=== PATIENT | female | born 2000 | race Two or more races ===

== ENCOUNTER 2025-04-09 18:01 | Inpatient (IN) | payer MEDICAID, SELFPAY ==
--- NOTE | 2025-04-05 13:11 | ESHP_ITS ---
RE: KALPESH JEFFRIES : 2000 DATE OF ADMISSION: 04/09/2025 HISTORY OF PRESENT ILLNESS: This is a 24-year-old 1, para 0 with EDC of 04/21 with intrauterine at 38 weeks and 2 days on April 09 who presents for induction of labor for intrauterine growth restriction. Maternal medicine did an ultrasound on April 01 which showed overall growth at the third percentile and abdominal circumference at the fifth percentile. Her umbilical artery Doppler and biophysical profile were normal. She underwent a echocardiogram on March 09 which was normal. She was referred for echocardiogram because maternal medicine ultrasound suggested that there could be a ventricular septal defect, however, this was not confirmed with the echocardiogram. Patient's care has been otherwise unremarkable with a normal 1 hour glucose tolerance test, a normal cell free DNA test and AFP and anatomy has been normal on maternal medicine ultrasounds. ALLERGIES: NO KNOWN DRUG ALLERGIES. MEDICATIONS: multivitamin 1 p.o. daily. SOCIAL HISTORY: She denies any alcohol, drug use or smoking. 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 PAST MEDICAL HISTORY: Denies. PAST SURGICAL HISTORY: Denies. FAMILY HISTORY: Denies. REVIEW OF SYSTEMS: She denies any chest pain, palpitations, cough, fever, shortness of breath, flank pain or lower extremity pain. She denies any headache, change in vision, or right upper quadrant pain. PHYSICAL EXAMINATION: VITAL SIGNS: Blood pressure 116/68, heart rate 88, respiration 18, temperature 98.6. Weight is 135 pounds. HEENT: Oropharynx and sclerae clear. LUNGS: Clear to auscultation bilaterally. HEART: Regular rate and rhythm. ABDOMEN: Gravid, consistent with estimated weight 2500 g. PELVIC: See RN notes. EXTREMITIES: Nontender. SKIN: No gross rashes or lesions. NEUROLOGIC: No focal deficit. ASSESSMENT AND PLAN: Intrauterine at 38 weeks and 2 days on April 09, intrauterine growth restriction, induction of labor, anticipate spontaneous vaginal delivery. Informed consent was obtained. The patient made aware of the risks, complication, alternative, benefits of operative vaginal delivery and delivery and agrees with these modes of delivery if indicated. DT: 12:53:15 TT: 13:10:00 Ref: [id number] - TID: [id number] MTDD
[2025-04-09 19:00] VITALS: BMI 28.0
[2025-04-09 19:18] VITALS: BP 133/87; PULSE 90
--- NOTE | 2025-04-09 20:02 | XR_ITS ---
EXAMINATION: after first trimester Date and time: April 09, 2025, 2053 hours INDICATIONS: Unknown size and presentation. TECHNIQUE AND FINDINGS: Cuevas scale sonographic images of the pelvis Viable intrauterine gestation in cephalic presentation Cardiac motion 135 bpm Placenta maternal left anterior grade 3 Amniotic fluid index 16.7 cm Cervix 3.0 cm Ovaries obscured by bowel gas Estimated age 34 weeks 4 days Estimated weight 2389.9 g IMPRESSION: Viable intrauterine gestation cephalic presentation
--- NOTE | 2025-04-09 20:10 | ESHP_ITS ---
Documentation for date of: 04/09/25 OB Labor/Induct. HPI History of Present Illness REYNALDO: 04/21/25 History of present illness: RE: KALPESH JEFFRIES : 2000 DATE OF ADMISSION: 04/09/2025 HISTORY OF PRESENT ILLNESS: This is a 24-year-old 1, para 0 with EDC of 04/21 with intrauterine at 38 weeks and 2 days on April 09 who presents for induction of labor for intrauterine growth restriction. Maternal medicine did an ultrasound on April 01 which showed overall growth at the third percentile and abdominal circumference at the fifth percentile. Her umbilical artery Doppler and biophysical profile were normal. She underwent a echocardiogram on March 09 which was normal. She was referred for echocardiogram because maternal medicine ultrasound suggested that there could be a ventricular septal defect, however, this was not confirmed with the echocardiogram. Patient's care has been otherwise unremarkable with a normal 1 hour glucose tolerance test, a normal cell free DNA test and AFP and anatomy has been normal on maternal medicine ultrasounds. ALLERGIES: NO KNOWN DRUG ALLERGIES. MEDICATIONS: multivitamin 1 p.o. daily. SOCIAL HISTORY: She denies any alcohol, drug use or smoking. 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 PAST MEDICAL HISTORY: Denies. PAST SURGICAL HISTORY: Denies. FAMILY HISTORY: Denies. REVIEW OF SYSTEMS: She denies any chest pain, palpitations, cough, fever, shortness of breath, flank pain or lower extremity pain. She denies any headache, change in vision, or right upper quadrant pain. PHYSICAL EXAMINATION: VITAL SIGNS: Blood pressure 116/68, heart rate 88, respiration 18, temperature 98.6. Weight is 135 pounds. HEENT: Oropharynx and sclerae clear. LUNGS: Clear to auscultation bilaterally. HEART: Regular rate and rhythm. ABDOMEN: Gravid, consistent with estimated weight 2500 g. PELVIC: See RN notes. EXTREMITIES: Nontender. SKIN: No gross rashes or lesions. NEUROLOGIC: No focal deficit. ASSESSMENT AND PLAN: Intrauterine at 38 weeks and 2 days on April 09, intrauterine growth restriction, induction of labor, anticipate spontaneous vaginal delivery. Informed consent was obtained. The patient made aware of the risks, complication, alternative, benefits of operative vaginal delivery and delivery and agrees with these modes of delivery if indicated. Labs Labs: Negative: RPR, Hepatitis B, Rubella Titre, HIV, Chlamydia, Gonorrhea and Group Beta Strep and Unknown: Herpes Type 1, Herpes Type 2 and Covid-19 Meds Home Medications and Allergies Home Medications ?Medication ?Instructions ?Recorded ?Confirmed ?Type vit no.95-ferrous tab PO 04/09/25 History fumarate 28 mg-folic acid 800 mcg tablet () Allergies Allergy/AdvReac Type Severity Reaction Status Date / Time NKA Allergy Unknown Uncoded 04/09/25 19:39 OB Exam Physical Exam Vital signs: Pulse BP 90 133/87 H 04/09/25 19:18 04/09/25 19:18 OB Results Labs 04/09/25 19:00
[2025-04-09 20:18] LABS: Basophils # (Auto) 0.0 Thou/mm3 (0.0-0.2); Basophils % (Auto) 0 % (0-2.5); Eosinophils # (Auto) 0.1 Thou/mm3 (0.0-0.5); Eosinophils % (Auto) 1 % (0-10); Hematocrit 38.6 % (36.0-46.0); Hemoglobin 13.6 g/dL (12.0-16.0); Immature Granulocytes Auto 0.04 Thou/mm3 (0.00-0.00); Lymphocytes # (Auto) 1.6 Thou/mm3 (1.0-4.8); Lymphocytes % (Auto) 20 % (10-50); Mean Corpuscular HGB Conc 35.2 g/dl (31.0-37.0); Mean Corpuscular Hemoglobin 31.3 pg (25.0-35.0); Mean Corpuscular Volume 89 fL (80-100); Monocytes # (Auto) 0.5 Thou/mm3 (0.0-0.8); Monocytes % (Auto) 6 % (0-12); Neutrophils # (Auto) 5.7 Thou/mm3 (1.8-7.7); Neutrophils % (Auto) 73 % (37-80); Nucleated Red Blood Cell # 0.00 Thou/mm3 (0.00-0.00); Nucleated Red Blood Cell % 0 /100 WBC (0); Platelet Count 257 Thou/mm3 (140-440); RDW Standard Deviation 44.2 fL (36.4-46.3); Red Blood Count 4.35 Miln/mm3 (4.00-5.20); White Blood Count 7.9 Thou/mm3 (3.6-11.0)
[2025-04-09 21:47] LABS: Amphetamine/Metham Scrn,Ur OB Negative (Negative); Benzoylecgonine Screen, Ur OB Negative (Negative); Opiate Screen,Urine OB Negative (Negative); THC Screen,Urine OB Negative (Negative)
[2025-04-09 21:54] VITALS: BP 93/61; PULSE 85
[2025-04-09 22:15] LABS: Syphilis Nonreactive (Nonreactive)
[2025-04-09 23:48] VITALS: BP 110/67; PULSE 85
[2025-04-10] VITALS (69 sets, daily range): BP systolic 106–123; BP diastolic 65–75; PULSE 65–97; RESP 16–20; TEMP 36.4–36.8; O2SAT 97–100
[2025-04-10] MEDS: RINGERS LACTATED 1000 ML 1,000 ML 125 ML IV ×3 (00:26→20:00)
--- NOTE | 2025-04-10 08:11 | PD.LDPN ---
Documentation for date of: 04/10/25 OB Labor Progress Note Pain Control Comments: None needed at this time. Pelvic Exam Dilation (cm): 0 Effacement (%): 0 station: -4 Amniotic membrane status: Intact Comments: Per RN Exam US confirms cephalic. Contractions Monitor mode: External Contraction frequency: Irregular/Occasional Contraction intensity: Mild Status status: Category l Assessment and Plan Comments: Induction of labor for IUGR Anticipate . History of Present Illness HPI No problems or complaints. Feels movement. No leaking or bleeding. Tolerating diet. Feels occasional contractions but can cope.
[2025-04-11] VITALS (175 sets, daily range): BP systolic 95–145; BP diastolic 51–86; PULSE 58–121; RESP 17–18; TEMP 36.4–37; O2SAT 76–100
--- NOTE | 2025-04-11 07:07 | PD.LDPN ---
Documentation for date of: 04/11/25 OB Labor Progress Note Pelvic Exam Dilation (cm): 1-2 Effacement (%): thick station: -2 Amniotic membrane status: Intact Contractions Monitor mode: External Contraction frequency: 2-3 Contraction pattern: Coupling Contraction intensity: Mild Status status: Category l Assessment and Plan Comments: Status post Cervidil Fourth Cytotec due to now Continuing with cervical ripening Induction ongoing
--- NOTE | 2025-04-11 10:15 | CHAP ---
Patient was visited by the Spiritual Care Volunteer who prayed for her. (Volunteer was on he floor from c 9:30-10:15)
[2025-04-11] MEDS: RINGERS LACTATED 500 ML 500 ML 999 ML IV (19:49)
[2025-04-12] VITALS (64 sets, daily range): BP systolic 99–129; BP diastolic 56–89; PULSE 69–116; RESP 15–20; TEMP 36.6–37.4; O2SAT 80–99
[2025-04-12] MEDS: OXYTOCIN in NS 20 units 20 UNIT/1,000 ML BAG 125 UNIT IV (03:28)
--- NOTE | 2025-04-12 03:38 | PD.LDDS ---
DS: Providers Provider Date of admission: 04/09/25 18:01 Primary care physician: Physician No Primary/Family Admitting Provider: Chu Charles MD Attending Provider on Admission: Chu Charles MD Attending Provider on DC: Chu Charles MD Discharging Provider: Chu Charles MD DS: Diagnosis Problem List Completed Was Problem List Reviewed/Reconciled?: Yes Summary/Hosp Course Brief History: No problems or complaints. Feels movement. No leaking or bleeding. Tolerating diet. Feels occasional contractions but can cope. Peripartum Data Delivery Method: Operative Vaginal Delivery Episiotomy Description: None Time Spent with Patient Time attestation: Total time spent providing and/or coordinating discharge services: Exam Vital Signs Temp Pulse Resp BP Pulse Ox O2 Del Method 98.3 F 92 15 118/89 H 80 L Room Air 04/12/25 01:07 04/12/25 03:28 04/12/25 01:07 04/12/25 03:28 04/12/25 03:21 04/11/25 17:50 Discharge Plan Plan Patient Disposition: HOME (Self Care) Patient condition on transfer: Stable Prescriptions/Referrals Prescriptions/Med Rec: New ibuprofen 600 mg tablet 600 mg PO Q6H PRN (Reason: pain) Qty: 30 0RF Continued PNV no.95-ferrous fumarate-FA [] 28 mg iron- 800 mcg tablet PO Patient Comments: Take 1 tablet by mouth once a day Referrals: No Primary/Family,Physician [Primary Care Provider] Patient/Caregiver Discharge Instructions Discharge Activity: activity as tolerated Other Discharge Activity Instructions:: Follow up office 6 weeks Education Materials: After a Vaginal , Incision Care After Vaginal , : Caring for Yourself Print Language: Romanian Activity Restrictions/Additional Instructions: follow up in 6 weeks, call for appointment, continue vitamin. Stand Alone Forms: [facility]be[facility] Award Info., Patient Portal Info Letter Vaccines Vaccines Given During Stay: Influenza Discharge Order Discharge Orders: Discharge (Routine); Ordered 04/13/25 Ordered By: Chu Charles Planned Discharge Date 04/13/25
[2025-04-12] MEDS: IBUPROFEN TAB 400 MG TABLET 800 MG PO (05:37)
[2025-04-12] MEDS: BENZO/LANO/ALOE (Dermoplast) 60 GM CAN 1 SPRAY TOP (05:38)
[2025-04-12 09:40] LABS: Basophils # (Auto) 0.0 Thou/mm3 (0.0-0.2); Basophils % (Auto) 0 % (0-2.5); Eosinophils # (Auto) 0.0 Thou/mm3 (0.0-0.5); Eosinophils % (Auto) 0 % (0-10); Hematocrit 34.7 % (36.0-46.0); Hemoglobin 11.9 g/dL (12.0-16.0); Immature Granulocytes Auto 0.07 Thou/mm3 (0.00-0.00); Lymphocytes # (Auto) 1.4 Thou/mm3 (1.0-4.8); Lymphocytes % (Auto) 9 % (10-50); Mean Corpuscular HGB Conc 34.3 g/dl (31.0-37.0); Mean Corpuscular Hemoglobin 30.8 pg (25.0-35.0); Mean Corpuscular Volume 90 fL (80-100); Monocytes # (Auto) 0.6 Thou/mm3 (0.0-0.8); Monocytes % (Auto) 4 % (0-12); Neutrophils # (Auto) 14.3 Thou/mm3 (1.8-7.7); Neutrophils % (Auto) 87 % (37-80); Nucleated Red Blood Cell # 0.00 Thou/mm3 (0.00-0.00); Nucleated Red Blood Cell % 0 /100 WBC (0); Platelet Count 227 Thou/mm3 (140-440); RDW Standard Deviation 44.1 fL (36.4-46.3); Red Blood Count 3.86 Miln/mm3 (4.00-5.20); White Blood Count 16.5 Thou/mm3 (3.6-11.0)
--- NOTE | 2025-04-12 15:08 | PD.LDDELS ---
Vacuum Assisted Delivery General Patient Counseled by physician:: Yes Informed consent to patient:: Yes Estimated weight:: 5 lb Cervical dilation:: fully dilated station:: +4 position:: OA Molding:: No Caput:: Yes Vacuum Application Vacuum type:: Mityvac Vacuum application:: flexing median Total vacuum time (min):: 7 Maximum pressure (cm Hg):: 50 Cup Placement Flexion point identified:: Yes Cup approp. for head position:: Yes Maternal tissue excluded:: Yes Vacuum Procedure Number of pulls (contractions):: 3 Number of pop-offs:: 1 Recommended range maintained:: Yes Vacuum reduced between pulls:: Yes Advancement made each pull:: Yes Vacuum successful:: Yes Immediate Evaluation Immediate assessment:: no apparent injury Data (Randall) Data : 1 Delivery Data (Randall) Labor Data Initiation of labor: Induction Induction/Augmentation Agent: Cytotec-PO and Cervidil ROM date: 04/11/25 ROM time: 18:45 Amniotic membrane rupture type: Spontaneous Amniotic fluid description: Clear Delivery Data EDC: 04/21/25 EDC calculated by:: LMP/early US confirmation Onset of labor date: 04/11/25 Onset of labor time: 18:45 Complete dilation date: 04/11/25 Complete dilation time: 23:53 delivery date: 04/12/25 [place] delivery time: 03:20 Gestational age (weeks): 38 Gestational age (days): 5 Placenta delivery date: 04/12/25 Placenta delivery time: 03:27 Stage 1 total time: Labor - Stage 1 Duration 5 hours and 8 minutes Delivered by: Chu Charles Delivery nurse: Constantino Altamirano RN, Carolyn Maria RN. [place] [facility] nurse: Jaylin Davis Relationship Executive at delivery: No Support person(s) at delivery: FOB, Patient's Mother Other staff at delivery: Karin Ugalde RNC. Delivery Method Delivery method: Operative Vaginal Delivery Presentation: Vertex position: OA Anesthesia Type Anesthesia Type: Epidural Placenta Placenta delivery description: Spontaneous Placenta Disposition: Sent to Pathology Cord blood sent to lab: Yes cord blood collection: Cord Blood Type, Arterial Cord Blood Gas and Venous Cord Blood Gas Episiotomy Episiotomy description: None Lacerations #1: Perineal: 1st degree Perineal repair Sutures used for repair: 3.0 Chromic EBL Estimated blood loss (ml): 50 Umbilical Cord cord description: 3 Vessels, Nuchal Cord and Tight (x 2) Complications Complications: None Data (Randall) Data order: 1 's gender: Female weight (gms): 4 lb 11.134 oz Weight (pounds): 4 lbs and 11.1 ozs 1 minute: 9 5 minutes: 9
[2025-04-13 03:40] VITALS: BP 116/80; PULSE 92; RESP 16; TEMP 36.7; O2SAT 97
--- NOTE | 2025-04-13 07:29 | ESPR_ITS ---
RE: KALPESH JEFFRIES : 2000 DATE OF SERVICE: 04/13/2025 SUBJECTIVE: day #1, the patient denies any problem or complaint. OBJECTIVE: Vital Signs: Blood pressure 116/80, heart rate 92, respirations 16, temperature is 98, pulse ox is 97% on room air. Lungs: Clear to auscultation bilaterally. Heart: Regular rate and rhythm. Abdomen. Fundus is firm, nontender. Extremities: Nontender. LABORATORY DATA: Hemoglobin pre-delivery is 13.6, post-delivery 11.9. ASSESSMENT AND PLAN: day #1, status post vacuum-assisted vaginal delivery of a intrauterine growth restricted . Plan is discharge home when baby is cleared. Discharge instructions were given. Follow up in the office in 6 weeks. DT: 07:13:41 TT: 07:27:00 Ref: [id number] - TID: [id number]
[2025-04-13 08:00] VITALS: BP 93/56; PULSE 83; RESP 18; TEMP 36.9; O2SAT 97
--- NOTE | 2025-04-13 08:40 | CHAP ---
Patient was visited by a Spiritual Care Volunteer on 04/12/2025 between 0900 and 1130 and received comfort, encouragement and/or prayer. Also, a blessing was given to and family.
[2025-04-13] MEDS: INFLUENZA VIRUS QUADRIVALENT 0.5 ML SYRINGE IMi (12:07)
--- NOTE | 2025-04-13 16:57 | PC.SS ---
DRY COLOR TESTER conducted bedside contact with the patient to address nursing referral indicating patient was late to care at 16 weeks.? DRY COLOR TESTER introduced self and role.? At bedside with patient was Melba MONTOYA.? Patient gave permission for FOB to be present during discussion.? Patient confirmed late to care due to not knowing she was .? Patient obtained OB services from Dr. Charles.? Reports consistency with OB services.? , Dee; is the patient?s first child.? delivered naturally.? Patient plans on combo feeding .? Patient interacting appropriate with infant. ?Patient is not receiving SNAP or TANF.? Patient is receiving WIC.? Patient denies history of alcohol/drug use.? Patient denies episodes of domestic violence.? Patient denies history of CWS intervention.? Patient denies history of mental health.? Patient confirmed that nursing staff address post- depression with patient.? Patient denies current presence of post- depression.? Patient has access to appropriate supplies and equipment.? FOB will provide transportation upon discharge.? Patient describes possessing support system consisting of parents and FOB.? DRY COLOR TESTER provided community resources to include Warm Line and Parenting Network.? No further intervention required at this time, social services coordinator will be available to address any further concerns.? DRY COLOR TESTER updated bedside nurse.?
== END 2025-04-13 14:25 | disposition home or self-care (01) | DRG 560 ==
LOC: S4SX 04-12 03:34 → S4NX 04-12 06:04
PROVIDERS: Admitting Provider Specialist; Visit Provider Specialist
DX: O36.5990 Maternal care for other known or suspected poor fetal growth, unspecified trimester, not applicable or unspecified (principal); O70.0 First degree perineal laceration during delivery; Z37.0 Single live birth; O69.1XX0 Labor and delivery complicated by cord around neck, with compression, not applicable or unspecified; Z23 Encounter for immunization
CPT/HCPCS: 36415; 59409; 76815; 80307; 85025; 86780; 86850; 86900; 86901; 90686; 94762; J2590; J2795; J3010; J7120; A9270; J9060